=== PATIENT | male | born 1935 | race Caucasian/White ===

== ENCOUNTER → 2017-04-16 | Outpatient (CLI) | payer OTHER | LOC: NUC 09:49 | DX: R93.7 Abnormal findings on diagnostic imaging of other parts of musculoskeletal system (principal) | CPT/HCPCS: 78315; A9503 ==

== ENCOUNTER → 2017-04-30 | Outpatient (CLI) | payer OTHER | END | disposition designated cancer center or children's hospital (05) | LOC: NUC 04-23 06:30 | DX: A41.1 Sepsis due to other specified staphylococcus (principal) | CPT/HCPCS: 78806; 78999; A9570 ==

== ENCOUNTER → 2017-05-01 | Outpatient (CLI) | payer OTHER | END | disposition home or self-care (01) | LOC: NUC 07:09 | DX: A41.1 Sepsis due to other specified staphylococcus (principal) | CPT/HCPCS: 78102; A9541 ==

== ENCOUNTER 2017-05-13 05:07 | Inpatient (IN) | payer OTHER ==
[~2017-05-13] VITALS: Ht 180.3 cm; Wt 107.5 kg
[2017-05-13 05:40] LABS: HEMATOCRIT 35.2 % (38.0-50.0); MCH 25.4 PG (29.0-34.0); MCV 87.8 FL (86-99); MEAN PLAT.VOLUME 11.5 uM^3 (9.0-12.4); NRBC (%) 0.1 /100 WBC (0-0); PLATELET COUNT 134 K/uL (156-360); RBC DIS.WIDTH-CV 16.1 % (11.8-14.6); RBC DIS.WIDTH-SD 51.3 % (39-53); RED BLOOD COUNT 4.01 M/uL (4.00-5.50); WHITE BLOOD COUNT 13.8 K/uL (4.1-10.2)
[2017-05-13 05:49] LABS: INTER. NORMALIZED RATIO 2.3; PROTHROMBIN TIME 25.8 SEC (10.2-12.9)
[2017-05-13 05:49] LABS: CHLORIDE 97 mEq/L (99-109); POTASSIUM 4.8 mEq/L (3.7-5.4); SODIUM 140 mEq/L (136-147)
[2017-05-13 05:51] LABS: GLUCOSE 107 mg/dL (70-99)
[2017-05-13 05:51] LABS: PTT 45.8 SEC (25-37)
[2017-05-13 05:52] LABS: ANION GAP 10 MEQ/L (2-14)
[2017-05-13 05:55] LABS: GFR ESTIMATE (CALCULATED) 48 mL/min/
[2017-05-13 05:56] LABS: UREA NITROGEN (BUN) 30 mg/dL (9-23)
[2017-05-13 06:03] LABS: TROP-I INTERPRETATION NEGATIVE; TROPONIN-I 0.05 ng/mL (0.0-0.30)
[2017-05-13] MEDS ORDERED: LEVOTHYROXINE50 MCG PO (06:41)
[2017-05-13] MEDS ORDERED: ALDACTONE25 MG PO (06:42)
[2017-05-13] MEDS ORDERED: FLOMAX0.4 MG PO (06:42)
[2017-05-13] MEDS ORDERED: BUMEX1 MG PO (06:43)
[2017-05-13] MEDS ORDERED: LOVENOX100 MG/1 M SC (06:44)
[2017-05-13] MEDS ORDERED: COUMADIN2 MG PO (06:46)
[2017-05-13] MEDS ORDERED: PLAVIX75 MG PO (06:47)
[2017-05-13] MEDS ORDERED: VITAMIN B-12500 MC3 PO (06:52)
[2017-05-13] MEDS ORDERED: REGLAN10 MG PO (06:53)
[2017-05-13] MEDS ORDERED: PROSCAR5 MG PO (06:53)
[2017-05-13] MEDS ORDERED: ZOFRAN4 MG/2 ML IM (07:46)
[2017-05-13] MEDS ORDERED: CATHFLO ACT2 MG/2 ML IV (07:48)
[2017-05-13] MEDS ORDERED: MI-ACID80 MG PO (07:48)
[2017-05-13] MEDS ORDERED: ANALGESIC BALM28 GM TP (07:51)
[2017-05-13] MEDS ORDERED: MIRALAX17 GM PO (07:52)
[2017-05-13] MEDS ORDERED: BISA-LAX5 MG PO (07:53)
[2017-05-13] MEDS ORDERED: COLACE100 MG PO (07:53)
[2017-05-13] MEDS ORDERED: DUONEB 2.5-0.5 M3 ML AEROSOL (07:56)
[2017-05-13] MEDS ORDERED: SPIRIVA18 MCG IH (07:57)
[2017-05-13 11:00] VITALS: BP 103/67
[2017-05-13 11:37] LABS: BASE EXCESS 9.7 mEq/L (-3 to +3); BICARBONATE 40.4 mEq/L (22-26); CARBOXY HGB 2.4 % (0-5); METHEMOGLOBIN 1.4 % (0-1.5); PCO2 101 mm Hg (35-45); PO2 166 mm Hg (80-100); SITE LR; pH 7.21 (7.35-7.45)
[2017-05-13 11:38] LABS: COMMENTS - BLOOD GASES A+C+; DEVICE NRBM; FI02 100 %; O2 FLOW 15 L/MIN; TOTAL RESP RATE 15 resp/min
[2017-05-13 12:49] LABS: TROP-I INTERPRETATION NEGATIVE; TROPONIN-I 0.07 ng/mL (0.0-0.30)
[2017-05-13 16:52] VITALS: BP 68/44
== END 2017-05-13 21:05 | DRG 291 ==
LOC: EME → EDBD 05:07 → EDSEX 05:07 → EME 05:07 → EDOF 09:12 → ENRESERV 09:14 → 4EAST 10:31
PROVIDERS: Emergency Medicine; Hospitalist
DX: I13.0 Hypertensive heart and chronic kidney disease with heart failure and stage 1 through stage 4 chronic kidney disease, or unspecified chronic kidney disease (principal); J96.01 Acute respiratory failure with hypoxia; J96.02 Acute respiratory failure with hypercapnia; I50.23 Acute on chronic systolic (congestive) heart failure; A41.2 Sepsis due to unspecified staphylococcus; I76 Septic arterial embolism; N18.9 Chronic kidney disease, unspecified; Z51.5 Encounter for palliative care; Z66 Do not resuscitate; I25.10 Atherosclerotic heart disease of native coronary artery without angina pectoris; E78.5 Hyperlipidemia, unspecified; I73.9 Peripheral vascular disease, unspecified; K21.9 Gastro-esophageal reflux disease without esophagitis; N40.1 Benign prostatic hyperplasia with lower urinary tract symptoms; R33.8 Other retention of urine; E03.9 Hypothyroidism, unspecified; Z79.02 Long term (current) use of antithrombotics/antiplatelets; Z79.01 Long term (current) use of anticoagulants; Z95.1 Presence of aortocoronary bypass graft; Z95.0 Presence of cardiac pacemaker; Z95.2 Presence of prosthetic heart valve; Z87.440 Personal history of urinary (tract) infections
CPT/HCPCS: 36600; 71010; 80048; 80053; 82803; 83605; 83735; 83880; 84100; 84484; 85027; 85610; 85730; 87040; 87801; 93005; 94799; 99202; 99281; 99285; J1940; J2270